=== PATIENT | female | born 1995 | race Caucasian/White ===

== ENCOUNTER 2018-08-01 10:31 | Inpatient (IN) | payer MEDICAID ==
[~2018-08-01] VITALS: Ht 157.5 cm; Wt 104.8 kg
[2018-08-01 10:31] VITALS: BP_SYST 134
--- NOTE | 2018-08-01 10:35 | NUR ---
Patient triaged and placed in waiting room. VSS and patient appears in no acute distress at this time. Accompanied by SELF, awaiting available bed, and MD notified of need for MSE.
--- NOTE | 2018-08-01 11:15 | NUR ---
Patient to ER bed 06 to gown for evaluation. Side rails up.
--- NOTE | 2018-08-01 11:16 | NUR ---
Pt presented to the ER with abdominal, epigastric and lower back pain x1 week 12/28. Pt states was seen at [facility] ER last week and Urgent Care in [place] 07/30/18. Patient ambulatory to the ER, arrived with father. Patient A7Ox4, afebrile, respirations equal bilat.
--- NOTE | 2018-08-01 11:30 | NUR ---
ER at bedside examining patient.
--- NOTE | 2018-08-01 11:30 | NUR ---
ER Dr. Monreal at bedside examining patient.
[2018-08-01] MEDS ORDERED: NACL 0.9% 1,000 ML IV ONE (11:34)
[2018-08-01 11:51] LABS: BILIRUBIN,URINE NEGATIVE (NEGATIVE); BLOOD, URINE 2+ (NEGATIVE); CLARITY/URINE CLEAR (CLEAR); COLOR,URINE YELLOW (YELLOW); GLUCOSE,URINE NEGATIVE (NEGATIVE); KETONES,URINE NEGATIVE (NEGATIVE); LEUKOCYTE ESTERASE ,URINE NEGATIVE (NEGATIVE); NITRITE, URINE NEGATIVE (NEGATIVE); PH,URINE 5.5 (5.0-8.0); PROTEIN URINE 1+ (NEGATIVE); UROBILINOGEN,URINE 0.2 (0.2-1.0)
--- NOTE | 2018-08-01 11:54 | NUR ---
CT abdomen with contrast consent signed. Radiology notified pt is ready for exam.
[2018-08-01 12:01] LABS: BACTERIA,URINE FEW /HPF (None Seen); MUCUS,URINE 1+ /LPF (None Seen); WBC,URINE 0-3 /HPF (0-3)
[2018-08-01 12:03] LABS: BENZODIAZEPINE, URINE NEGATIVE (NEG <=150); COCAINE, URINE NEGATIVE (NEG <=150); METHAMPHETAMINES SCREEN,URINE NEGATIVE (NEG <=500); PHENCYCLIDINE SCREEN,URINE NEGATIVE (NEG <=25); UR TRICYCLIC ANTIDEPRESSANTS NEGATIVE (NEG <=300); URINE AMPHETAMINE NEGATIVE (NEG <=500); URINE METHADONE NEGATIVE (NEG <=200); URINE OXYCODONE SCREEN NEGATIVE (NEG <=100); URINE PROPOXYPHENE SCREEN NEGATIVE (NEG <=300)
[2018-08-01 12:04] LABS: BARBITURATE, URINE POSITIVE (NEG <=200); CANNABINOID, URINE POSITIVE (NEG <=50); OPIATE, URINE POSITIVE (NEG <=100)
[2018-08-01 12:09] LABS: BASOPHILS % (AUTO) 0.5 % (0.0-2.0); EOSINOPHILS # (AUTO) 0.4 K/uL (0.0-0.4); EOSINOPHILS % (AUTO) 2.6 % (0.0-4.0); HEMATOCRIT 39.8 % (36-48); HEMOGLOBIN 13.2 g/dL (12.0-16.0); LYMPHOCYTES # (AUTO) 1.9 K/uL (1.0-5.5); LYMPHOCYTES % (AUTO) 12.8 % (20.5-51.5); MEAN CORPUSCULAR HEMOGLOBIN 29 pg (27-31); MEAN CORPUSCULAR HGB CONC 33 % (32-36); MEAN CORPUSCULAR VOLUME 86 fL (79.0-98.0); MONOCYTES # (AUTO) 1.4 K/uL (0.0-1.0); MONOCYTES % (AUTO) 9.3 % (1.7-9.3); NEUTROPHILS # (AUTO) 11.4 K/uL (1.8-7.7); NEUTROPHILS % (AUTO) 74.8 % (40.0-70.0); PLATELET COUNT (AUTO) 493 K/uL (130-430); RED BLOOD CELL COUNT(AUTO) 4.64 MIL/uL (4.2-6.2); RED CELL DISTRIBUTION WIDTH 12.9 % (9.0-15.0); WHITE BLOOD COUNT (AUTO) 15.2 K/uL (4.8-10.8)
[2018-08-01 12:10] LABS: BASOPHILS # (AUTO) 0.1 K/uL (0.0-0.2)
[2018-08-01] MEDS ORDERED: IOHEXOL 100 ML IV ONE (12:10)
[2018-08-01 12:12] LABS: CALCIUM 9.2 mg/dL (8.4-11.0); CREATININE 0.79 mg/dL (0.55-1.30); POTASSIUM 4.2 mmol/L (3.5-5.1)
[2018-08-01 12:16] LABS: ALBUMIN 3.3 g/dL (3.4-4.8); TOTAL BILIRUBIN 0.4 mg/dL (0.0-1.0)
[2018-08-01] MEDS ORDERED: metroNIDAZOLE 500 mg/NS 100 ML IV ONE (13:00)
[2018-08-01] MEDS ORDERED: PIPERACILLIN/TAZO 3.375 GM in NS 50 ML IV ONE (13:00)
[2018-08-01] MEDS ORDERED: PIPERACILLIN/TAZOBACTAM 3.375 GM/VIAL (ZOSYN) IV ONE (13:15)
--- NOTE | 2018-08-01 13:17 | NUR ---
Blood cultures drawn and sent to lab. Zosyn 3.375 g at 100mL/hr administered. Pt tolerated well. No adverse reactions noted.
[2018-08-01] MEDS ORDERED: MORPHINE 4 MG/ML INJ. SYRINGE IVP ONE (14:00)
--- NOTE | 2018-08-01 15:08 | NUR ---
Pt states she is full code.
[2018-08-01] MEDS ORDERED: D5/0.45 NS 1,000 ML IV ONE (15:15)
--- NOTE | 2018-08-01 15:18 | NUR ---
CONSULTATION PAGED/CALLED Reason for Consultation: [] CHOLECYSTITIS Person Who was Notified: [] MARIO/DR MOTA Consulting Physician: [] DR Sukhjinder MOTA Charge Attendant Specialty: [] GEN SURGEON Ordering Physician: [] DR Kuldip ZEE
--- NOTE | 2018-08-01 15:31 | NUR ---
Patient will be admitted to care of Dr Simon. Admitted to MedSurg unit. Will go to room 125B. Belongings list completed. Summary report printed. Report will given to Patsy RN, transported to [facility] 125B by Charli MCDONNELL.
--- NOTE | 2018-08-01 15:36 | NUR ---
ADMISSION NOTE Received patient from ER via rtra, received report from luz marina MCDONNELL. Patient admitted with diagnosis of cholycystitis. Patient oriented to hospital routine, call light, toileting and safety-patient verbalized understanding. ADMISSION NOTE Received patient from ER via gurney. Patient admitted with diagnosis of []. Patient is awake, alert, oriented X []. Patient oriented to hospital room, call light, toileting, pain management and safety-teach back done. Patient informed that [] will be [] nurse and that their room number is []. Personal belongings checked and Belongings List documented. Call light within reach.
[2018-08-01 16:05] VITALS: BP_SYST 120
--- NOTE | 2018-08-01 16:13 | NUR ---
JAJA CAMPOS PAGED FOR PAIN MEDICATION. ORDERS RECEIVED AND CARRIED OUT.
[2018-08-01] MEDS ORDERED: ONDANSETRON HCL 4 MG/2 ML VIAL IVP PRN (16:15)
[2018-08-01] MEDS ORDERED: MORPHINE 4 MG/ML INJ. SYRINGE IVP PRN (16:15)
[2018-08-01] MEDS: MORPHINE 4 MG/ML INJ. SYRINGE IVP PRN (16:37)
[2018-08-01] MEDS ORDERED: HYDROmorphone 1 MG INJ. 1 MG/ML AMPUL IVP ONE (17:00)
[2018-08-01] MEDS ORDERED: HYDROmorphone 2 MG/ML VIAL ONE (17:13)
[2018-08-01 17:20] LABS: HCG,QUAL RESULT NEGATIVE (NEGATIVE)
--- NOTE | 2018-08-01 18:01 | NUR ---
PATIENT TAKEN TO SURGERY
[2018-08-01] MEDS ORDERED: LR 1,000 ML IV.SOLN IV ONE (18:10)
[2018-08-01] MEDS ORDERED: WATER FOR IRRIGATION,STERILE 1,000 ML IRRIG.SOLN IR ONE (18:10)
[2018-08-01] MEDS ORDERED: ROCURONIUM BROMIDE 10 MG/ML (ZEMURON) IV ONE (18:10)
[2018-08-01] MEDS ORDERED: CEFAZOLIN 2 GM IVPB PREMIX 50 ML IV ONE (18:10)
[2018-08-01] MEDS ORDERED: BUPIVACAINE /DEX PF 0.75% SPINAL 2 ML AMP INJ ONE (18:10)
[2018-08-01] MEDS ORDERED: fentaNYL CITRATE/PF 100 MCG/2 ML AMP IVP ONE (18:10)
[2018-08-01] MEDS ORDERED: SEVOFLURANE 15 MIN GAS INH ONE (18:10)
[2018-08-01] MEDS ORDERED: ONDANSETRON HCL 4 MG/2 ML VIAL IVP ONE (18:10)
[2018-08-01] MEDS ORDERED: PROPOFOL 200MG/ 20ML VIAL (DIPRIVAN) IV ONE (18:10)
[2018-08-01] MEDS ORDERED: MIDAZOLAM HCL 5 MG/5 ML VIAL IVP ONE (18:10)
[2018-08-01] MEDS ORDERED: fentaNYL CITRATE 250 MCG/5 ML AMP IV ONE (18:10)
[2018-08-01] MEDS ORDERED: LORazepam 2 MG/ML VIAL IVP PRN (18:30)
[2018-08-01] MEDS ORDERED: LR 1,000 ML IV SCH (19:14)
[2018-08-01] MEDS ORDERED: METOCLOPRAMIDE HCL 10 MG/2 ML VIAL IVP PRN (19:15)
[2018-08-01] MEDS ORDERED: HYDROmorphone 1 MG INJ. 1 MG/ML AMPUL IVP PRN ×2 (19:15)
[2018-08-01] MEDS ORDERED: HYDROmorphone 2 MG/ML VIAL IVP PRN (19:15)
[2018-08-01 20:40] VITALS: BP_SYST 141
--- NOTE | 2018-08-01 20:40 | NUR ---
RECEIVED PT FROM PACU PT RECEIVED FROM DISABILITIES SERVICES OFFICER SAMSON. PT AWAKE, BUT DROWSY. VSS, NO ACUTE DISTRESS NOTED, NO C/O PAIN AT THIS TIME. LR CURRENTLY INFUSING L.AC 18G NO S/S INFILTRATION. ABD LAP SITES X 3 GAUZE DRESSING C/D/I AND RIGHT EMMA DRAIN EMPTIED 30ML BLOODY DRAINAGE. DAIN SCDS ON. FAMILY AT BEDSIDE. CALL LIGHT WITHIN REACH. TO MONITOR.
--- NOTE | 2018-08-01 21:30 | NUR ---
PAIN MGMT/I.S PT C/O DULL POST OP PAIN 08/28, VSS MEDICATED WITH MORPHINE 2MG IVP NEEDED. CALL LIGHT WITHIN REACH. FAMILY AT BEDSIDE. EDUCATED PT/FAMILY ON I.S. USE 10X WHILE AWAKE TO PREVENT COMPLICATIONS. VERB UNDERSTANDING.
[2018-08-01 22:05] VITALS: BP_SYST 133
--- NOTE | 2018-08-02 00:15 | NUR ---
Rounds Pt asleep. No s/s distress noted. LR still infusing. Pt's significant other at bedside. Call light within reach. To monitor.
[2018-08-02 00:24] VITALS: BP_SYST 133
[2018-08-02] MEDS: MORPHINE 4 MG/ML INJ. SYRINGE IVP PRN ×3 (02:04→10:07)
--- NOTE | 2018-08-02 02:04 | NUR ---
Pain mgmt/Pt voided Pt awake, c/o severe pain after coughing. Medicated with Morphine 4mg IVP. Encouraged pt to use pillow to splint abdomen when coughing. Pt verbalized understanding. Pt requested to use bedpan. Pt voided good amount of stacey urine noted. Call light within reach. Suraj SCDs in place. To monitor.
[2018-08-02 05:12] VITALS: BP_SYST 130
--- NOTE | 2018-08-02 05:22 | NUR ---
Closing notes/Pain mgmt/EMMA drain Pt awake, moaning in severe pain. VSS. O2 93% on 2L NC. Medicated with Morphine 4mg IVP as needed. LR currently running L. AC 18G no s/s infiltration. EMMA drain R. abd emptied total of 60ml red drainage. Lap sites x3 dressings C/D/I. Suraj SCDs in place. Call light remains within easy reach. Pt made comfortable. To endorse to dayshift RN.
[2018-08-02 07:13] LABS: ALBUMIN 2.3 g/dL (3.4-4.8); CALCIUM 8.3 mg/dL (8.4-11.0); CREATININE 0.69 mg/dL (0.55-1.30); POTASSIUM 3.9 mmol/L (3.5-5.1); TOTAL BILIRUBIN 2.6 mg/dL (0.0-1.0)
[2018-08-02 07:19] LABS: HEMATOCRIT 36.4 % (36-48); HEMOGLOBIN 12.3 g/dL (12.0-16.0); MEAN CORPUSCULAR HEMOGLOBIN 29 pg (27-31); MEAN CORPUSCULAR HGB CONC 34 % (32-36); MEAN CORPUSCULAR VOLUME 86 fL (79.0-98.0); PLATELET COUNT (AUTO) 474 K/uL (130-430); RED BLOOD CELL COUNT(AUTO) 4.25 MIL/uL (4.2-6.2); RED CELL DISTRIBUTION WIDTH 12.7 % (9.0-15.0); WHITE BLOOD COUNT (AUTO) 12.3 K/uL (4.8-10.8)
[2018-08-02 07:20] LABS: BASOPHILS % (AUTO) 0.2 % (0.0-2.0); EOSINOPHILS # (AUTO) 0.2 K/uL (0.0-0.4); EOSINOPHILS % (AUTO) 1.3 % (0.0-4.0); LYMPHOCYTES # (AUTO) 1.8 K/uL (1.0-5.5); LYMPHOCYTES % (AUTO) 14.4 % (20.5-51.5); MONOCYTES # (AUTO) 1.1 K/uL (0.0-1.0); MONOCYTES % (AUTO) 9.3 % (1.7-9.3); NEUTROPHILS # (AUTO) 9.2 K/uL (1.8-7.7); NEUTROPHILS % (AUTO) 74.8 % (40.0-70.0)
--- NOTE | 2018-08-02 07:20 | NUR ---
Opening Note patient resting in bed, eyes closed, breathing unlabored and symmetrical, no signs of distress, partner at bedside, educated him on use of call light for assistance, verbalized understanding, call light and bedside table left within reach, will continue to monitor patient
[2018-08-02 08:55] VITALS: BP_SYST 132
--- NOTE | 2018-08-02 09:05 | NUR ---
Incentive Spirometer teaching performed at this time, educated patient regarding use, verbalized understanding, reached 1000 mL, educated on goal of 1500 mL and frequency of use, verbalized understanding, left on table within reach, educated on pain management, verbalized understanding, stated pain is 6/10, does not want pain meds at this time, family at bedside, educated patient on use of call light for assistance, verbalized understanding, call light and bedside table left within reach, will continue to monitor patient
--- NOTE | 2018-08-02 10:13 | NUR ---
Pain Meds given at this time, educated patient regarding med, verbalized understanding, IV site remains patent, demonstrated incentive spirometer and reached 1500 mL, educated her on frequency of use as tolerated, verbalized understanding, father and partner at bedside, educated patient on use of call light for assistance, verbalized understanding, call light and bedside table left within reach, safety precautions in place, will continue to monitor
--- NOTE | 2018-08-02 11:50 | NUR ---
Patient Ambulated Around Unit at this time, steady gait, walked with IV pole, stated pain is tolerable when ambulating, assisted back to bed, educated patient on use of call light for assistance, verbalized understanding, call light and bedside table left within reach, will continue to monitor patient
[2018-08-02 12:25] VITALS: BP_SYST 131
--- NOTE | 2018-08-02 13:30 | NUR ---
Dr. Simon Rounded spoke with patient, per patient MD stated possible DC tomorrow, will follow through with MD orders
[2018-08-02] MEDS: HYDROcodone/ACETAMIN 5-325 MG TAB (NORCO/ VICODIN) PO PRN ×3 (13:43→22:36)
--- NOTE | 2018-08-02 13:47 | NUR ---
Hortencia given per pain scale protocol, educated her regarding med, tolerated well, she is sitting on bed legs dangling, father at bedside, educated patient on use of call light for assistance, verbalized understanding, call light and bedside table left within reach, will continue to monitor patient
--- NOTE | 2018-08-02 14:28 | NUR ---
Spoke with Dr. Tejinder ACOSTA ok'd to advance to full liquid diet, also informed MD that IV fluids are finishing and if he wanted to continue IV fluids, stated OK to saline lock after IV bag is complete
[2018-08-02 16:08] VITALS: BP_SYST 106
--- NOTE | 2018-08-02 16:23 | NUR ---
Dr. Marr Rounded at this time, wants to order MRI MRCP, will probably place order
--- NOTE | 2018-08-02 16:42 | NUR ---
MRI stated cannot do MRCP until Sunday Dr. Marr made aware at nurses' station. stated will assess labs tomorrow and go from there.
--- NOTE | 2018-08-02 17:15 | NUR ---
Dietitian Recommendations *Recommend advancing to full liquid diet if/when medically appropriate. LP, RD Please refer to Nutrition Assessment for details.
[2018-08-02] MEDS: D5/0.45 NS 1,000 ML IV SCH (18:34)
--- NOTE | 2018-08-02 18:43 | NUR ---
Pain Meds/Closing Note patient sitting on bed, legs dangling, mother at bedside, norco given per pain scale protocol, patient tolerated well, additional 10 mL from EMMA drain removed, total of 70 mL today. No other needs at this time. Educated patient on use of call light for assistance, verbalized understanding, call light and bedside table left within reach, will endorse to warehouse shift supervisor nurse
[2018-08-02 20:00] VITALS: BP_SYST 123
--- NOTE | 2018-08-02 20:00 | NUR ---
INITIAL NOTES: PT IS ALERT AND ORIENTED , NOTICED SHE IS WALKING IN THE ROOM WITH MINIMAL ASSIST , PT STATED HER PAIN IS BETTER AFTER MEDICATION ; VITALS ARE STABLE ; ASSESSMENT DONE ; ALL NEEDS MET , ENCOURAGED PT TO USE IS EVERY HR WHILE AWAKE FOR 10 TIMES . FAMILY AT BEDSIDE ; DRESSING TO THE ABDOMEN X3 CLEAN DRY AND INTACT , NO S/S OF ANY INFECTION TO THE RUTH DRESSING SITE NOTED ; EMMA IS DRAINING WELL SEROSANGUINEOUS DRAINAGE , NO CLOTS NOTED , DRESSING TO ITS SITE IS CLEAN AND DRY AND INTACT . IV FLUID IS INFUSING WELL TO THE LEFT AC , NO S/S OF ANY INFILTRATION OR INFECTION NOTED .ENCOURAGED PT TO CALL FOR ASSIST ; WILL CONTINUE TO MONITOR PT
--- NOTE | 2018-08-02 22:00 | NUR ---
RN NOTES: PT IS C/O MILD - MODERATE PAIN , WILL MEDICATE WHEN NORCO IS DUE . PT STILL DIDNT PASS GAS , ENCOURAGED PT TO AMBULATE MORE WITH ASSIST .
--- NOTE | 2018-08-02 22:40 | NUR ---
MEDICATION: PT C/O PAIN , MEDICATED WITH NORCO PER ORDER , EDUCATED PT REGARDING THE MEDICATION .WILL CONTINUE TO MONITOR PT .
--- NOTE | 2018-08-03 00:10 | NUR ---
RN ROUNDS: PT IS SLEEPING , NOT IN ANY ACUTE DISTRESS; WILL CONTINUE TO MONITOR PT .
[2018-08-03 01:10] VITALS: BP_SYST 124
--- NOTE | 2018-08-03 02:00 | NUR ---
RN NOTES: PT CALLED AND REQUESTED TO DRAIN THE EMMA , EMMA DRAINED 25 ML BY ADMITTING NURSE SINCE PRIMARY RN WAS WITH ANOTHER PT , NOTICED THAT PT IS WALKING ON THE HALLWAY WITH HIS FAMILY .STEADY GAIT NOTED . NO C.O ANY PAIN AT THIS TIME .WILL CONTINUE TO MONITOR
[2018-08-03] MEDS: D5/0.45 NS 1,000 ML IV SCH ×3 (03:35→18:03)
[2018-08-03] MEDS: HYDROcodone/ACETAMIN 5-325 MG TAB (NORCO/ VICODIN) PO PRN ×3 (03:36→13:55)
--- NOTE | 2018-08-03 03:48 | NUR ---
RN NOTES: PT C/O PAIN , PROVIDED NORCO PER ORDER , REMINDED PT OF NPO STATUS .WILL CALL MD IN THE MORNING TO CLARIFY ORDER .
--- NOTE | 2018-08-03 06:20 | NUR ---
RECEIVED CALL FROM LAB. TIM- CRITICAL LAB. BLOOD CULTURE POSITIVE FOR GRAM POSITIVE COCCI, INFORM PRIMARY NURSE. PRIMARY NURSE VERIFIED WITH LAB.
--- NOTE | 2018-08-03 06:25 | NUR ---
CALLED BACK : DR MOTA CALLED BACK , ORDERED CLEAR LIQUIDS
--- NOTE | 2018-08-03 06:32 | NUR ---
BLOOD CULTURE RESULT: ADMITTING NURSE CAME TO RN AND STATED LAB CALLED AND SAID PT S BLOOD CULTURE IS POSITIVE FOR GRAM POSITIVE COCCI . CALLED AND CONFIRMED WITH TIM IN LAB , PER TIM HE CANNOT ENTER IT IN THE COMPUTER SINCE ITS PRELIMINARY RESULT AND SPECIMEN IS STILL IN THE FABIANO .SENSITIVITY IS NOT READY , WILL CALL AND NOTIFY
--- NOTE | 2018-08-03 06:37 | NUR ---
PAGED PAGED Yuliana ZEE FOR CRITICAL LAB
--- NOTE | 2018-08-03 06:50 | NUR ---
CALLED BACK ; DR Kuldip ZEE CALLED BACK , NOTIFIED MD THAT PTS PRELIMINARY BLOOD CULTURE RESULT CAME AND PATIENT IS POSITIVE FOR GRAM POSITIVE COCCI IN CLUSTER , ORDERED LEVAQUIN 500 MG IV Q24 HRS , FLAGYL 500 MG IV Q8 HRS , ID CONSULT WITH DR MARK KC . ORDER ENTERED .
--- NOTE | 2018-08-03 06:59 | NUR ---
CONSULTATION PAGED/CALLED Reason for Consultation: POSITIVE BLOOD CULTURE Person Who was Notified: ARLIN Consulting Physician: DR. MARK KC Infant Childcare Provider Specialty: INTERNAL MEDICINE Ordering Physician: DR. Yuliana ZEE
[2018-08-03] MEDS ORDERED: metroNIDAZOLE 500 mg/NS 100 ML IV ONE (07:00)
[2018-08-03 07:06] LABS: ALBUMIN 2.1 g/dL (3.4-4.8); CALCIUM 8.3 mg/dL (8.4-11.0); CREATININE 0.71 mg/dL (0.55-1.30); POTASSIUM 3.7 mmol/L (3.5-5.1)
[2018-08-03 07:09] LABS: HEMATOCRIT 36.9 % (36-48); HEMOGLOBIN 12.3 g/dL (12.0-16.0); LYMPHOCYTES % (AUTO) 9.6 % (20.5-51.5); MEAN CORPUSCULAR HEMOGLOBIN 28 pg (27-31); MEAN CORPUSCULAR HGB CONC 33 % (32-36); MEAN CORPUSCULAR VOLUME 86 fL (79.0-98.0); NEUTROPHILS % (AUTO) 79.4 % (40.0-70.0); PLATELET COUNT (AUTO) 450 K/uL (130-430); RED BLOOD CELL COUNT(AUTO) 4.32 MIL/uL (4.2-6.2); RED CELL DISTRIBUTION WIDTH 12.9 % (9.0-15.0); WHITE BLOOD COUNT (AUTO) 12.5 K/uL (4.8-10.8)
[2018-08-03 07:10] LABS: BASOPHILS % (AUTO) 0.2 % (0.0-2.0); EOSINOPHILS # (AUTO) 0.1 K/uL (0.0-0.4); LYMPHOCYTES # (AUTO) 1.2 K/uL (1.0-5.5); MONOCYTES # (AUTO) 1.2 K/uL (0.0-1.0); MONOCYTES % (AUTO) 9.8 % (1.7-9.3); NEUTROPHILS # (AUTO) 9.9 K/uL (1.8-7.7)
--- NOTE | 2018-08-03 07:20 | NUR ---
CLOSING NOTES: PT IS SITTING UP AT THE BEDSIDE , NOT IN ANY ACUTE DISTRESS; EMMA DRAINED 35 ML IN TOTAL ; PT STATED SHE PASSED GAS ONCE . INFORMED PT THAT MD ORDERED CLEAR LIQUIDS . REPORT GIVEN TO RN AT BEDSIDE . INFORMED RN ABOUT THE NEW ORDERS LEVAQUIN, FLAGYL AND ID CONSULT . ALL NEEDS MET .
[2018-08-03 08:00] VITALS: BP_SYST 144
--- NOTE | 2018-08-03 08:00 | NUR ---
OPENING NOTE: RECEIVED REPORT FROM NIGHT NURSE. PATIENT IS RESTING COMFORTABLY IN BED. NO S/S OF DISTRESS OR SOB. PATIENT IS ALERT AND ORIENTED, ABLE TO EXPRESS NEEDS AND ASK FOR ASSISTANCE. BOYFRIEND AT BEDSIDE. VITAL SIGNS UPDATED IN FLOWSHEET. IVF INFUSING. PATIENT ON ROOM AIR. EMMA DRAIN IN PLACE. CALL LIGHT IN REACH, BED IN LOWEST POSITION, AND WILL CONTINUE TO MONITOR.
[2018-08-03] MEDS ORDERED: VANCOMYCIN HCL 2,000 MG in NS 500 ML IV ONE (08:30)
[2018-08-03] MEDS: LEVOFLOXACIN 500 MG/D5W 100 ML IV SCH (09:55)
--- NOTE | 2018-08-03 10:00 | NUR ---
PATIENT AMBULATING AROUND THE UNIT WITH HER MOTHER. STEADY GAIT NOTICED.
[2018-08-03 12:02] VITALS: BP_SYST 136
--- NOTE | 2018-08-03 13:00 | NUR ---
RN ROUNDS: PATIENT AMBULATING WITH HER MOTHER AROUND THE UNIT. STEADY GAIT. WILL CONTINUE TO MONITOR.
[2018-08-03] MEDS: metroNIDAZOLE 500 mg/NS 100 ML IV SCH ×2 (13:55→23:49)
[2018-08-03] MEDS ORDERED: HYDROmorphone 1 MG INJ. 1 MG/ML AMPUL IM PRN (14:30)
--- NOTE | 2018-08-03 14:30 | NUR ---
Dr. Marr making rounds
--- NOTE | 2018-08-03 15:00 | NUR ---
abdomen ultrasound being done at bedside.
[2018-08-03] MEDS: HYDROmorphone 1 MG INJ. 1 MG/ML AMPUL IVP PRN ×2 (15:22→20:52)
--- NOTE | 2018-08-03 15:25 | NUR ---
PAIN MEDICATION PATIENT MEDICATED FOR PAIN WITH NEW PRN MEDICATION ORDER. IVP DILAUDID GIVEN PER DR. MOTA'S ORDER. PATIENT EDUCATED ON MEDICATION SIDE EFFECTS AND TO CALL FOR ASSISTANCE BEFORE GETTING UP. PATIENT VERBALIZED UNDERSTANDING. FAMILY AT BEDSIDE AND ALSO EDUCATED. CALL LIGHT IN REACH, BED IN LOWEST POSITION, AND WILL CONTINUE TO MONITOR.
[2018-08-03 16:25] VITALS: BP_SYST 124
--- NOTE | 2018-08-03 17:44 | NUR ---
CORPORATE QUALITY ENGINEER CONSULT SPOKE TO MARTY RAYMOND AND MADE AWARE OF CONSULT, DR LI KITCHEN CLERK FOR DR MENSAH, REASON FOR CONSULT- HYPERBILIRUBIN.
--- NOTE | 2018-08-03 18:08 | NUR ---
CLOSING NOTE: PATIENT IS RESTING COMFORTABLY IN BED. NO S/S OF DISTRESS OR SOB. PATIENT IS ALERT AND ORIENTED, ABLE TO EXPRESS NEEDS, AND ASK FOR ASSISTANCE. PATIENT ON ROOM AIR. ALL NEEDS MET DURING SHIFT. CALL LIGHT IN REACH, BED IN LOWEST POSITION, AND WILL GIVE REPORT TO NIGHT NURSE.
--- NOTE | 2018-08-03 19:35 | NUR ---
Initial Note Received patient awake, alert and oriented with family at the bedside. No SOB noted. Denies any pain or n/v at this time. Room air with O2 saturation of 97%. IVF infusing. EMMA drain on RUQ intact with minimal drainage noted. Steri strips x3 CDI. No peripheral edema noted. SCD off per patient's request. Encouraged to use incentive spirometer. VS stable. Needs attended. Care and monitoring will be provided per protocol. Call light within reach. Bed alarm off per patient's request. Bed at lowest position at all times. Kept warm and comfortable. Patient wants to take a shower. Covered IV line and steri strips.
[2018-08-03] MEDS: VANCOMYCIN HCL 1,750 MG in NS 500 ML IV SCH (19:45)
[2018-08-03 20:00] VITALS: BP_SYST 129
--- NOTE | 2018-08-03 20:15 | NUR ---
Shower Patient had a shower and she's back in bed. IV line patent and steri strips are CDI. Started IV antibiotics. Father and significant other at the bedside. No other complaints.
--- NOTE | 2018-08-03 20:52 | NUR ---
Pain med Patient in bed resting. Medicated for abdominal pain per patient's request. IV antibiotic infusing as well. Comfort measures provided. Will continue to monitor.
--- NOTE | 2018-08-03 21:10 | NUR ---
Dr Parikh called Dr. Parikh called and made him aware of CT abd result, US Abd still pending and that patient is for MRI/MRCP on Sunday. No further orders given.
--- NOTE | 2018-08-03 23:45 | NUR ---
RN Note Patient awake and alert. No complaints at this time. Kept warm.
[2018-08-04] MEDS: HYDROmorphone 1 MG INJ. 1 MG/ML AMPUL IVP PRN ×6 (01:02→21:44)
--- NOTE | 2018-08-04 01:02 | NUR ---
Pain med Pain medication given by SATHYA Mcallister per patient's request. Will continue to monitor.
[2018-08-04 01:27] VITALS: BP_SYST 132
--- NOTE | 2018-08-04 01:30 | NUR ---
David Roque Dr. arrived and talked to the patient. Orders were made. Patient is arousable. No complaints at this time. IVF infusing.
--- NOTE | 2018-08-04 05:00 | NUR ---
Pain med Patient ambulated to the bathroom and back in bed with the assistance of his significant other in excruciating pain. Medicated for abdominal pain, comfort measures provided as well. Will continue to monitor.
[2018-08-04] MEDS: metroNIDAZOLE 500 mg/NS 100 ML IV SCH ×3 (05:06→23:01)
--- NOTE | 2018-08-04 06:21 | NUR ---
End Note Afebrile. Vs stable. Denies any SOB or n/v throughout the night. Medicated for pain 3x throughout the night. Ambulates well with steady gait and supervision. No BM yet but able to burp and pass gas. Tolerated clear liquid diet. Steristrips CDI. Encouraged to use the incentive spirometer. IVF infusing. Emptied about 2 ml of yellow drainage from EMMA drain, maintained bulb suction. Refused SCDs for now. AM labs today. Care and monitoring provided per protocol. Call light within reach. Bed alarm off per patient's request. Bed at lowest position at all times. Needs attended. Kept warm and comfortable.
[2018-08-04 06:45] LABS: WHITE BLOOD COUNT (AUTO) 10.9 K/uL (4.8-10.8)
[2018-08-04 06:46] LABS: HEMATOCRIT 35.7 % (36-48); HEMOGLOBIN 11.9 g/dL (12.0-16.0); MEAN CORPUSCULAR HEMOGLOBIN 28 pg (27-31); MEAN CORPUSCULAR VOLUME 85 fL (79.0-98.0); RED BLOOD CELL COUNT(AUTO) 4.18 MIL/uL (4.2-6.2)
[2018-08-04 06:47] LABS: MEAN CORPUSCULAR HGB CONC 33 % (32-36); PLATELET COUNT (AUTO) 453 K/uL (130-430)
[2018-08-04 06:48] LABS: LYMPHOCYTES % (AUTO) 14.6 % (20.5-51.5); NEUTROPHILS % (AUTO) 71.8 % (40.0-70.0)
[2018-08-04 06:49] LABS: BASOPHILS # (AUTO) 0.1 K/uL (0.0-0.2); BASOPHILS % (AUTO) 0.5 % (0.0-2.0); EOSINOPHILS # (AUTO) 0.2 K/uL (0.0-0.4); EOSINOPHILS % (AUTO) 1.8 % (0.0-4.0); LYMPHOCYTES # (AUTO) 1.6 K/uL (1.0-5.5); MONOCYTES # (AUTO) 1.2 K/uL (0.0-1.0); MONOCYTES % (AUTO) 11.3 % (1.7-9.3); NEUTROPHILS # (AUTO) 7.8 K/uL (1.8-7.7)
[2018-08-04 07:08] LABS: ALBUMIN 2.1 g/dL (3.4-4.8); CALCIUM 8.4 mg/dL (8.4-11.0); CREATININE 0.72 mg/dL (0.55-1.30); POTASSIUM 3.6 mmol/L (3.5-5.1); TOTAL BILIRUBIN 2.3 mg/dL (0.0-1.0)
--- NOTE | 2018-08-04 08:00 | NUR ---
OPENING NOTE: RECEIVED REPORT FROM NIGHT NURSE. PATIENT IS RESTING COMFORTABLY IN BED. NO S/S OF DISTRESS OR SOB. PATIENT IS ALERT AND ORIENTED, ABLE TO EXPRESS NEEDS, AND ASK FOR ASSISTANCE. IVF INFUSING. EMMA DRAIN ATTACHED. PATIENT ON ROOM AIR. CALL LIGHT IN REACH, BED IN LOWEST POSITION, AND WILL CONTINUE TO MONITOR.
[2018-08-04 08:15] LABS: C-REACTIVE PROTEIN QUANT 20.8 mg/dL (0-0.5)
[2018-08-04 08:18] VITALS: BP_SYST 134
[2018-08-04] MEDS: LEVOFLOXACIN 500 MG/D5W 100 ML IV SCH (08:43)
[2018-08-04] MEDS: D5/0.45 NS 1,000 ML IV SCH ×2 (09:07→20:47)
[2018-08-04 09:09] LABS: ERYTHROCYTE SEDIMENTATION RATE 88 MM/HR (0-20)
--- NOTE | 2018-08-04 09:10 | NUR ---
PAIN MEDICATION PATIENT MEDICATION FOR PAIN PER PRN ORDER. PATIENT INSTRUCTED ON MEDICATION SIDE EFFECTS AND INSTRUCTED ON USING CALL LIGHT TO CALL FOR ASSISTANCE BEFORE GETTING UP. PATIENT VERBALIZED UNDERSTANDING. CALL LIGHT IN REACH, BED IN LOWEST POSITION, AND WILL CONTINUE TO MONITOR.
[2018-08-04 09:20] VITALS: BP_SYST 134
[2018-08-04] MEDS: VANCOMYCIN HCL 1,750 MG in NS 500 ML IV SCH ×2 (10:35→20:46)
[2018-08-04 11:49] VITALS: BP_SYST 142
--- NOTE | 2018-08-04 12:00 | NUR ---
RN ROUNDS PATIENT IS RESTING COMFORTABLY IN BED. NO S/S OF DISTRESS OR SOB. PATIENT IS ALERT AND ORIENTED, ABLE TO EXPRESS NEEDS, AND ASK FOR ASSISTANCE. NO NEEDS EXPRESSED AT THIS TIME. CALL LIGHT IN REACH, BED IN LOWEST POSITION, AND WILL CONTINUE TO MONITOR.
[2018-08-04 16:26] VITALS: BP_SYST 141
--- NOTE | 2018-08-04 18:29 | NUR ---
FOOD IN FREEZER/FRIDGE FAMILY BROUGHT JELLO AND POPSICLES FOR PATIENT, LABELS PLACED ON ITEMS AND PLACED IN PATIENT FRIDGE IN PANTRY.
--- NOTE | 2018-08-04 18:30 | NUR ---
CLOSING NOTE: PATIENT IS RESTING COMFORTABLY IN BED. NO S/S OF DISTRESS OR SOB. PATIENT IS ALERT AND ORIENTED, ABLE TO EXPRESS NEEDS, AND ASK FOR ASSISTANCE. PATIENT CURRENTLY ON ROOM AIR, ENCOURAGED TO KEEP NASAL CANNULA ON. ALL NEEDS MET DURING SHIFT. CALL LIGHT IN REACH, BED IN LOWEST POSITION, AND WILL GIVE REPORT TO NIGHT NURSE.
--- NOTE | 2018-08-04 19:30 | NUR ---
CHANGE OF SHIFT; pt. in bed resting, with family at bedside. IVF infusing. S/P lap cara, 3 incision with steri strips intact with J mendez x1. reminded pt. on deep breathing and use of IS. denies any pain at this time. call light within reach.
--- NOTE | 2018-08-04 20:00 | NUR ---
NOTES: pt. ambulated in the hallway with family member. deep breathing encouraged. on room air.abdominal dressing with steri strips intact. pt. schedule for MRI of abdomen, will be NPO after midnight. pt. needs attended. family at bedside. call light within reach.
[2018-08-04 20:15] VITALS: BP_SYST 139
--- NOTE | 2018-08-04 21:00 | NUR ---
NOTES: pt. up dangling in bed and playing games with family. IV antibiotic infused.
--- NOTE | 2018-08-04 21:45 | NUR ---
NOTES: pt. c/o post op abdominal pain 12/28, medicated with IV Dilaudid as ordered. repositioned self for comfort. pt. /boyfriend at bedside will be staying all night.
--- NOTE | 2018-08-04 23:18 | NUR ---
NOTES: remains awake, resting, noted some relief from pain. reminded to be NPO at midnight.
[2018-08-05 00:10] VITALS: BP_SYST 134
--- NOTE | 2018-08-05 00:37 | NUR ---
NOTES: pt. resting when checked. condition unchanged. kept NPO for MRI of abdomen, consent signed and checklist completed.
[2018-08-05] MEDS: HYDROmorphone 1 MG INJ. 1 MG/ML AMPUL IVP PRN ×5 (01:54→21:35)
--- NOTE | 2018-08-05 01:58 | NUR ---
NOTES: pt. called c/o post op abdominal pain 02/27, pt. moaning, medicated with IV Dilaudid as ordered. IVF patent.
--- NOTE | 2018-08-05 03:09 | NUR ---
NOTES: pt. noted relief, sleeping. continue to monitor.
[2018-08-05] MEDS: metroNIDAZOLE 500 mg/NS 100 ML IV SCH ×3 (05:41→21:35)
--- NOTE | 2018-08-05 05:45 | NUR ---
NOTES: pt. sleeping when checked. IV kept @ 100 cc./hr. incision sites with steri strips intact with coretta mendez x1.
[2018-08-05] MEDS: D5/0.45 NS 1,000 ML IV SCH ×2 (06:30→14:30)
--- NOTE | 2018-08-05 06:40 | NUR ---
CLOSING NOTES; pt. still asleep when checked. IVF @ 100 cc./hr with D5 1/2 NS. kept NPO for MRI (MRCP) of abdomen. for further care and assistance. will endorse to day shift. boyfriend at bedside. call light within reach.
[2018-08-05 06:43] LABS: ALBUMIN 2.1 g/dL (3.4-4.8); BILIRUBIN,DIRECT 2.6 mg/dL (0.0-0.3); CALCIUM 8.4 mg/dL (8.4-11.0); CREATININE 0.76 mg/dL (0.55-1.30); POTASSIUM 3.2 mmol/L (3.5-5.1); TOTAL BILIRUBIN 2.8 mg/dL (0.0-1.0)
[2018-08-05 07:12] LABS: HEMATOCRIT 35.2 % (36-48); HEMOGLOBIN 11.8 g/dL (12.0-16.0); MEAN CORPUSCULAR HEMOGLOBIN 29 pg (27-31); MEAN CORPUSCULAR HGB CONC 33 % (32-36); MEAN CORPUSCULAR VOLUME 86 fL (79.0-98.0); RED CELL DISTRIBUTION WIDTH 13.3 % (9.0-15.0); WHITE BLOOD COUNT (AUTO) 9.2 K/uL (4.8-10.8)
[2018-08-05 07:14] LABS: PLATELET COUNT (AUTO) 458 K/uL (130-430)
[2018-08-05 07:19] LABS: LYMPHOCYTES % (AUTO) 18.9 % (20.5-51.5); NEUTROPHILS % (AUTO) 68.4 % (40.0-70.0)
[2018-08-05 07:20] LABS: BASOPHILS % (AUTO) 0.3 % (0.0-2.0); EOSINOPHILS # (AUTO) 0.2 K/uL (0.0-0.4); EOSINOPHILS % (AUTO) 2.1 % (0.0-4.0); LYMPHOCYTES # (AUTO) 1.7 K/uL (1.0-5.5); MONOCYTES # (AUTO) 0.9 K/uL (0.0-1.0); MONOCYTES % (AUTO) 10.3 % (1.7-9.3); NEUTROPHILS # (AUTO) 6.3 K/uL (1.8-7.7)
--- NOTE | 2018-08-05 07:42 | NUR ---
OPENING NOTE Patient resting in the bed. No acute distress. AAO X 4. C/O abdomen pain, will give pain med as ordered. Skin warm and dry to touch. IV intact to LAC, no redness, no swelling, no drainage. On D5 1/2 NS at 100ml/hr, infusing well. Discussed the safety issue, use call light when needs help, and plan of care, verbally understanding. Boy friend at bedside. Safety measure maintained. Bed locked in low position, side rails up. Refused bed alarm, risk and benefit explained. Call light within reached. Will continue to monitor.
[2018-08-05 07:44] LABS: C-REACTIVE PROTEIN QUANT 14.1 mg/dL (0-0.5)
[2018-08-05 07:45] VITALS: BP_SYST 123
[2018-08-05] MEDS: LEVOFLOXACIN 500 MG/D5W 100 ML IV SCH (07:47)
[2018-08-05] MEDS: ONDANSETRON HCL 4 MG/2 ML VIAL IVP PRN ×3 (07:56→17:27)
[2018-08-05] MEDS ORDERED: POTASSIUM CHLORIDE 20 MEQ TAB.PRT.SR PO ONE (09:00)
[2018-08-05] MEDS: VANCOMYCIN HCL 1,750 MG in NS 500 ML IV SCH ×2 (09:37→21:36)
--- NOTE | 2018-08-05 09:55 | NUR ---
CALLED JAJA CAMPOS BUT THE PHONE KEPT BUSY. WILL CALL LATER.
[2018-08-05 10:23] LABS: ERYTHROCYTE SEDIMENTATION RATE 85 MM/HR (0-20)
--- NOTE | 2018-08-05 10:41 | NUR ---
PAGED DR ZEE FOR ORDERS. SPOKE WITH JANY
--- NOTE | 2018-08-05 10:52 | NUR ---
RECEIVED THE CALL FROM RADIOLOGY Per radiology will case picker patient around 12pm.
--- NOTE | 2018-08-05 10:54 | NUR ---
JAJA CAMPOS CALLED BACK Received the call back from Dr. Simon, informed to Alfred Patel patient on NPO status and the order of potassium chloride PO, asked if want to change IV and per Dr. Marr that is okay for PO medication with sip of water but better to give after MRI. Dr. Lebron stated "that is fine, just give after MRI".
--- NOTE | 2018-08-05 11:52 | NUR ---
TOYA HUDDLESTON Received the call from Dr. Marr, informed MRI no done yet. Asked Dr. Marr, patient K=3.2 this morning, Dr. Simon ordered PO potassium chloride if patient okay to take medication with water. Per Dr. Marr, patient okay to take medication with sip of water but better to take medication after MRI. Addendum: 08/05/18 at 1156 by Milly Staples RN LATER ENTRY FOR 1051, DUE TO PATIENT CARE.
--- NOTE | 2018-08-05 12:05 | NUR ---
SLEEPING Patient sleeping at this time. No acute distress. IV intact, IVF infusing well. Safety measure maintained. Call light within reached. Family at bedside. Continue to monitor.
[2018-08-05 12:14] VITALS: BP_SYST 121
--- NOTE | 2018-08-05 13:00 | NUR ---
DILAUDID AND ZOFRAN GIVEN Patient c/o abdomen pain 7/10, Dilaudid 1mg IVP and Zofran 4mg IVP given as ordered. No acute distress. Family at bedside. Safety measure maintained. Call light within reached. Continue to monitor.
--- NOTE | 2018-08-05 13:07 | NUR ---
OFF UNIT FOR MRI/MRCP VIA WHEELCHAIR IN STABLE CONDITION.
--- NOTE | 2018-08-05 14:37 | NUR ---
BACK TO UNIT FROM MRI/MRCP VIA WHEELCHAIR IN STABLE CONDITION.
[2018-08-05 16:50] VITALS: BP_SYST 123
--- NOTE | 2018-08-05 17:44 | NUR ---
TOYA HUDDLESTON VISITED WITH DIET ORDER.
[2018-08-05] MEDS ORDERED: LR 1,000 ML IV.SOLN IV ONE (18:10)
[2018-08-05] MEDS ORDERED: CEFAZOLIN 2 GM IVPB PREMIX 50 ML IV ONE (18:10)
[2018-08-05] MEDS ORDERED: ONDANSETRON HCL 4 MG/2 ML VIAL IVP ONE (18:10)
[2018-08-05] MEDS ORDERED: SEVOFLURANE 15 MIN GAS INH ONE (18:10)
[2018-08-05] MEDS ORDERED: ROCURONIUM BROMIDE 10 MG/ML (ZEMURON) IV ONE (18:10)
[2018-08-05] MEDS ORDERED: fentaNYL CITRATE/PF 100 MCG/2 ML AMP IVP ONE (18:10)
[2018-08-05] MEDS ORDERED: MIDAZOLAM HCL 5 MG/5 ML VIAL IVP ONE (18:10)
[2018-08-05] MEDS ORDERED: fentaNYL CITRATE 250 MCG/5 ML AMP IV ONE (18:10)
[2018-08-05] MEDS ORDERED: WATER FOR IRRIGATION,STERILE 1,000 ML IRRIG.SOLN IR ONE ×2 (18:10)
[2018-08-05] MEDS ORDERED: BUPIVACAINE /EPINEPHRINE/PF 0.5% 30 ML VIAL INJ ONE (18:10)
--- NOTE | 2018-08-05 18:42 | NUR ---
CLOSING NOTE Patient resting in the bed. No acute distress. Pain med given as ordered. Skin warm and dry to touch. IV intact to LAC, no redness, no swelling, no drainage. On D5 1/2 NS at 100ml/hr, infusing well. Abd 3 lap sites intact with steri strip[. EMMA intact to right abdomen with 25ml serosanguineous drainage. All needs met. Safety measure maintained. Bed locked in low position, side rails up. Refused bed alarm, risk and benefit explained. Call light within reached. Will endorse to night nurse.
--- NOTE | 2018-08-05 19:20 | NUR ---
Opening notes Received report. Patient sitting up in bed, watching TV. No signs of distress noted. Breathing is even and unlabored. Patient complains of 3/4 pain at this time. IV is patent and intact. EMMA drain is patent and intact. No needs at this time. Call light with the patient. Safety precautions in place.
--- NOTE | 2018-08-05 19:50 | NUR ---
PAGED PAGED DOCTOR MOTA FOR MRCP REPORT
--- NOTE | 2018-08-05 19:59 | NUR ---
Spoke to Dr. Marr regarding MRCP results. No new orders at this time.
[2018-08-05 20:00] VITALS: BP_SYST 125
--- NOTE | 2018-08-05 21:15 | NUR ---
PAGED PAGED DOCTOR SVETLANA SO THE FAMILY CAN SPEAK TO HIM REGARDING THE TEST RESULTS.
--- NOTE | 2018-08-05 21:35 | NUR ---
Medications Scheduled and prn pain medications given. Patient complain of 7/10 pain to right abdomen. Educated the action and side effects of medication. Patient verbalized understanding and tolerated well. No signs of allergic reaction noted. Provided patient with patient's jello and ice water. No other needs at this time. Call light with the patient. Safety precautions in place.
--- NOTE | 2018-08-05 22:07 | NUR ---
Dr. Marr at bedside Updated patient and family of MRCP results. Patient will have HIDA scan tomorrow morning. NPO after midnight. Patient and family verbalized understanding. Addendum: 08/05/18 at 2227 by Olga Dsouza RN Consent signed and placed in chart.
--- NOTE | 2018-08-06 | NUR ---
Sleeping Patient sleeping at this time. No signs of distress noted. Breathing is even and unlabored. IV is patent and intact. No needs at this time. Call light with the patient. Safety precautions in place. at bedside.
[2018-08-06 00:12] VITALS: BP_SYST 115
[2018-08-06] MEDS: D5/0.45 NS 1,000 ML IV SCH ×3 (01:40→21:12)
[2018-08-06] MEDS: HYDROmorphone 1 MG INJ. 1 MG/ML AMPUL IVP PRN ×4 (01:41→21:13)
--- NOTE | 2018-08-06 01:49 | NUR ---
Pain Patient complain of 7/10 to right abdomen. PRN pain medication given, educated the action and side effects of medication. Patient verbalized understanding and tolerated well no signs of allergic reaction noted. New bag of IV fluids hung at this time. No other needs at this time. Call light with the patient. Safety precautions in place.
[2018-08-06] MEDS: metroNIDAZOLE 500 mg/NS 100 ML IV SCH ×3 (05:37→21:12)
--- NOTE | 2018-08-06 05:45 | NUR ---
IV ABX hung at this time. No signs of allergic reaction noted. Patient resting comfortably in bed. No signs of distress noted, no complaints of pain. Breathing is even and unlabored. Call light with the patient. Safety precautions in place.
[2018-08-06 06:18] LABS: HEMATOCRIT 35.2 % (36-48); HEMOGLOBIN 11.5 g/dL (12.0-16.0); MEAN CORPUSCULAR HEMOGLOBIN 28 pg (27-31); MEAN CORPUSCULAR VOLUME 86 fL (79.0-98.0); RED BLOOD CELL COUNT(AUTO) 4.07 MIL/uL (4.2-6.2); WHITE BLOOD COUNT (AUTO) 8.5 K/uL (4.8-10.8)
[2018-08-06 06:19] LABS: BASOPHILS % (AUTO) 0.4 % (0.0-2.0); EOSINOPHILS % (AUTO) 2.8 % (0.0-4.0); LYMPHOCYTES # (AUTO) 1.8 K/uL (1.0-5.5); LYMPHOCYTES % (AUTO) 20.7 % (20.5-51.5); MEAN CORPUSCULAR HGB CONC 33 % (32-36); MONOCYTES % (AUTO) 10.6 % (1.7-9.3); NEUTROPHILS # (AUTO) 5.6 K/uL (1.8-7.7); NEUTROPHILS % (AUTO) 65.5 % (40.0-70.0); PLATELET COUNT (AUTO) 451 K/uL (130-430); RED CELL DISTRIBUTION WIDTH 13.6 % (9.0-15.0)
[2018-08-06 06:20] LABS: EOSINOPHILS # (AUTO) 0.2 K/uL (0.0-0.4); MONOCYTES # (AUTO) 0.9 K/uL (0.0-1.0)
[2018-08-06 06:33] LABS: C-REACTIVE PROTEIN QUANT 7.8 mg/dL (0-0.5); CALCIUM 8.4 mg/dL (8.4-11.0); CREATININE 0.84 mg/dL (0.55-1.30); POTASSIUM 3.6 mmol/L (3.5-5.1); TOTAL BILIRUBIN 3.5 mg/dL (0.0-1.0)
--- NOTE | 2018-08-06 06:52 | NUR ---
Closing notes Patient asleep in bed. No signs of distress noted. Breathing is even and unlabored. No complaints of pain at this time. IV is patent and intact infusing fluids. EMMA drain is patent intact. 5 ml of serous drainage noted throughout shift. All needs met throughout the shift. NPO status maintained. Call light with the patient. Safety precautions in place. Will endorse care to day shift RN. Addendum: 08/06/18 at 0657 by Olga Dsouza RN Nuclear medicine informed the nurse she will berry picker patient at 0900 and Patient does not have to be NPO and is able to receive pain medication. Will endorse to day shift RN.
[2018-08-06 08:01] LABS: ERYTHROCYTE SEDIMENTATION RATE 83 MM/HR (0-20)
[2018-08-06 08:05] VITALS: BP_SYST 128
[2018-08-06] MEDS: LEVOFLOXACIN 500 MG/D5W 100 ML IV SCH (08:05)
--- NOTE | 2018-08-06 08:05 | NUR ---
OPENING NOTES patient received resting in bed A&O x4, patient denies any acute distress at this time, pain level is an 8 out of 10, breathing is even and unlabored on room air, assessment completed, educated patient on plan of care and call light system, IVF infusing as ordered, will continue to monitor, safety precautions in place, call light within reach.
--- NOTE | 2018-08-06 08:50 | NUR ---
MD rounds Dr. Broderick assessed patient in room, informed patient that patient should remain NPO until results of HIDA scan.
--- NOTE | 2018-08-06 09:15 | NUR ---
Patient off the floor for HIDA scan at this time.
--- NOTE | 2018-08-06 11:30 | NUR ---
patient back on floor assisted patient back into bed, patient denies any acute distress or pain, IVF Infusing as ordered, breathing is even and unlabored, will continue to monitor, safety precautions in place, call light within reach, family at bedside.
[2018-08-06] MEDS: VANCOMYCIN HCL 1,750 MG in NS 500 ML IV SCH ×2 (11:41→21:13)
[2018-08-06 12:09] VITALS: BP_SYST 113
--- NOTE | 2018-08-06 12:45 | NUR ---
NOTES patient is resting in bed, patient denies any acute distress, pain is controlled at this time, breathing even and unlabored IVF infusing as ordered, will continue to monitor, safety precautions in place, call light within reach.
--- NOTE | 2018-08-06 14:55 | NUR ---
NOTES per Dr. Broderick patient is able to eat because the ERCP will be tomorrow, patient tolerating full liquid diet well, no nausea or vomiting, IVF infusing as ordered, will continue to monitor, no acute distress or pain noted, breathing even and unlabored, safety precautions in place, call light within reach.
--- NOTE | 2018-08-06 16:44 | NUR ---
NOTES patient is ambulating around the floor at this time, no acute distress or pain is noted, IVF infusing well, will continue to monitor.
[2018-08-06 17:15] VITALS: BP_SYST 116
[2018-08-06] MEDS: OXYCODONE/ACETAMINOPHEN 5-325 TABLET PO PRN (17:40)
--- NOTE | 2018-08-06 18:50 | NUR ---
CLOSING NOTE PATIENT IS RESTING IN CHAIR A&O X4, NO ACUTE DISTRESS OR PAIN NOTED, IVF INFUSING WELL, BREATHING EVEN AND UNLABORED ON ROOM AIR, ALL NEEDS WERE MET THROUGHOUT SHIFT, WILL ENDORSE REPORT TO ONCOMING NURSE, SAFETY PRECAUTIONS IN PLACE, CALL LIGHT WITHIN REACH.
--- NOTE | 2018-08-06 19:10 | NUR ---
Opening notes Received report. Patient resting in chair, talking to father. No signs of distress noted. Breathing is even and unlabored. Patient states her pain is slowly climbing up, will medicate shortly. IV is patent and intact infusing fluids. call light with the patient. Safety precautions in place.
[2018-08-06 20:00] VITALS: BP_SYST 129
--- NOTE | 2018-08-06 21:15 | NUR ---
Medications/pain Scheduled medications given. Patient complain of 7/10 pain to abdomen. Patient states percocet did not relieve her pain. Educated the patient the need to ween off Dilaudid. Patient states pain is severe and she will try percocet after her procedure tomorrow. Educated the patient the action and side effects of medications. Patient verbalized understanding. No other needs. Call light with the patient. Safety precautions in place.
[2018-08-07 00:10] VITALS: BP_SYST 119
--- NOTE | 2018-08-07 00:23 | NUR ---
Resting Patient resting comfortably in bed watching TV and talking to Mother. No signs of distress noted. Breathing is even and unlabored. IV is patent and intact. No needs at this time. Call light with the patient. Safety precautions in place.
--- NOTE | 2018-08-07 01:55 | NUR ---
Sleeping Patient sleeping in bed. No signs of distress noted. Breathing is even and unlabored. IV is patent and intact infusing fluids. Call light with the patient. Safety precautions in place.
[2018-08-07] MEDS: HYDROmorphone 1 MG INJ. 1 MG/ML AMPUL IVP PRN ×3 (03:12→23:01)
--- NOTE | 2018-08-07 03:19 | NUR ---
Pain Patient crying and complaining of 10/10 pain to abdomen. PRN pain medication given. No signs of allergic reaction noted. Provided patient with facial tissues. No other needs at this time. Call light with the patient. Safety precautions in place. Mother at bedside comforting patient.
[2018-08-07 06:11] LABS: ALBUMIN 2.2 g/dL (3.4-4.8); CALCIUM 8.4 mg/dL (8.4-11.0); CREATININE 0.79 mg/dL (0.55-1.30); POTASSIUM 3.1 mmol/L (3.5-5.1); TOTAL BILIRUBIN 3.9 mg/dL (0.0-1.0)
[2018-08-07] MEDS: D5/0.45 NS 1,000 ML IV SCH ×2 (06:30→16:30)
[2018-08-07 07:20] LABS: WHITE BLOOD COUNT (AUTO) 9.1 K/uL (4.8-10.8)
[2018-08-07 07:21] LABS: HEMOGLOBIN 11.6 g/dL (12.0-16.0); MEAN CORPUSCULAR HEMOGLOBIN 29 pg (27-31); MEAN CORPUSCULAR HGB CONC 33 % (32-36); MEAN CORPUSCULAR VOLUME 86 fL (79.0-98.0); PLATELET COUNT (AUTO) 457 K/uL (130-430); RED BLOOD CELL COUNT(AUTO) 4.06 MIL/uL (4.2-6.2); RED CELL DISTRIBUTION WIDTH 14.3 % (9.0-15.0)
[2018-08-07] MEDS: LEVOFLOXACIN 500 MG/D5W 100 ML IV SCH (08:00)
--- NOTE | 2018-08-07 08:05 | NUR ---
OPENING NOTE patient received resting in bed A&O x4, IVF infusing well, patient denies any acute distress, pain is 9/10, will medicate for pain, breathing is even and unlabored on room air, educated patient on plan of care and call light system, will continue to monitor, safety precautions in place, call light within reach.
[2018-08-07 08:38] LABS: BASOPHILS # (AUTO) 0.1 K/uL (0.0-0.2); BASOPHILS % (AUTO) 0.6 % (0.0-2.0); EOSINOPHILS # (AUTO) 0.3 K/uL (0.0-0.4); EOSINOPHILS % (AUTO) 3.1 % (0.0-4.0); LYMPHOCYTES # (AUTO) 1.7 K/uL (1.0-5.5); LYMPHOCYTES % (AUTO) 18.8 % (20.5-51.5); MONOCYTES % (AUTO) 11.4 % (1.7-9.3); NEUTROPHILS % (AUTO) 66.1 % (40.0-70.0)
[2018-08-07 09:03] LABS: ERYTHROCYTE SEDIMENTATION RATE 73 MM/HR (0-20)
--- NOTE | 2018-08-07 10:08 | NUR ---
NOTES patient is resting in bed A&O x4, pain is controlled at this time, breathing even and unlabored on room air, no acute distress noted, will continue to monitor, family at bedside, safety precautions in place, call light within reach.
[2018-08-07] MEDS: NACL 0.9% 1,000 ML IV SCH ×2 (10:30→22:52)
[2018-08-07] MEDS ORDERED: KCL 20 mEq in 100 mL (PREMIX) 100 ML IV ONE (10:30)
[2018-08-07 12:02] VITALS: BP_SYST 123
[2018-08-07 12:09] LABS: PROTHROMBIN TIME 10.4 SECS (9.5-12.5)
[2018-08-07] MEDS ORDERED: IOHEXOL 50 ML IV ONE (12:56)
--- NOTE | 2018-08-07 13:07 | NUR ---
patient off the floor for procedure.
[2018-08-07] MEDS ORDERED: INDOMETHACIN 50 MG SUPP.RECT RC ONE (13:30)
--- NOTE | 2018-08-07 13:36 | NUR ---
Nutrition F/U Admitting Diagnosis Cholecystitis Reviewed Pertinent Medical/Surgical Hx Medical Record Patient Family Members Medical History Comment: PMH per MD note: NONE Updated per MD note 08/02/18: acute cholecystitis, systemic inflammatory response syndrome, possible UTI, polysubstance abuse 08/07/18ID MD note: leukocytosis may have sepsis; acute cholecystitis, s/p laparoscopic cholecystectomy, obesity, r/o sleep apnea, elevated liver enzymes and bilirubin, hepatocellular disease Subjective Information Per MD orders, plans for ERCP. Pt had MRCP and HIDA scan recently -- MRCP revealed somewhat limited exam due to patient motion, nonvisualization of the gallbladder consistent with patient's surgical history; findings consistent with a loculated fluid collection within the stepan hepatis region; findings may be associated with surgical sequelae; a bile leak cannot be excluded. HIDA revealed no significant clearance/excretion from the liver; findings may be associated with hepatocellular dysfunction reflective in the patient's abnormal bilirubin levels. Pt reported no appetite. Bedscale wt taken: 249 lb. Current Diet Order/Nutrition Support NPO x0 days Patient/Significant Other Able To Verbalize Education Provided Indicated Pertinent Medications D5%/NaCl IV, zofran Pertinent Labs AST 171 H, ALP 251 H, WBC 9.1 WNL (improved), BUN 4 L, Ca 8.4 L, Na 116 L Height (Feet) 5 feet Height (Inches) 2.00 inches Weight (Pounds) 231 pounds (08/02/18) Weight (Calculated Kilograms) 104.749551 kilograms Patient Weight 104.78 kg Body Mass Index 42.25 kg/m2 Usual Weight 232 lbs %UBW 100 %IBW 210 [place]/Adjusted Body Weight IBW 110 lbs, 50 kg ABW 140 lbs, 64 kg Recent Weight Change No Weight Status Morbidly Obese Gastrointestinal Symptoms None Last BM Jul 30, 2018 Food Allergies No Usual Diet At Home Regular, fast food Skin Integrity Comment: Kayden Scale: 20; Anterior Abdomen Incision Current % PO Good (75-100%) Estimated Energy Expenditure (kcals/day) 9500-8985 kcal/day (20-25 kcal/kg ABW for maintenance) Estimated Protein Required (g/day) 51-77 g/day (0.8-1.2 g/kg ABW for maintenance/wound healing) Estimated Fluid Required (l/day) 2.6 L/day (25 ml/kg CBW for maintenance) Problem/Etiology/Signs/Symptoms Malnutrition R/T morbid obesity AEB 231 lbs CBW, BMI 42, and 210% IBW. *ongoing Expected Outcomes/Goals -Monitor pt appetite and PO intake w/ goal of pt meeting at least 50% estimated nutritional needs, labs trending WNL, skin integrity/wt maintenance. Dietitian Recommendations * Consider advance diet if/when medically appropriate Follow Up Mod Risk: F/U in 3-5 days Addendum: 08/07/18 at [address] CORRECTION: Follow Up High Risk: F/U 2-3 days
--- NOTE | 2018-08-07 13:48 | NUR ---
Dietitian Recommendations * Consider advance diet if/when medically appropriate LP, RD Please refer to Nutrition F/U for details.
[2018-08-07] MEDS ORDERED: fentaNYL CITRATE/PF 100 MCG/2 ML AMP IVP PRN ×2 (14:00)
[2018-08-07] MEDS ORDERED: ONDANSETRON HCL 4 MG/2 ML VIAL IVP PRN (14:00)
[2018-08-07] MEDS ORDERED: KETOROLAC TROMETHAMINE 30 MG VIAL IVP PRN (14:00)
--- NOTE | 2018-08-07 14:50 | NUR ---
Patient back from OR vital signs stable, oriented patient back to room, IVF infusing well, will continue to monitor, safety precautions in place, call light within reach, family at bedside.
--- NOTE | 2018-08-07 16:57 | NUR ---
ASSISTED PATIENT TO BATHROOM PATIENT AMBULATED WITH STEADY GAIT, NO NAUSEA OR VOMITING, NO ACUTE DISTRESS, PAIN IS CONTROLLED AT THIS TIME, WILL CONTINUE TO MONITOR, SAFETY PRECAUTIONS IN PLACE, CALL LIGHT WITHIN REACH.
--- NOTE | 2018-08-07 18:36 | NUR ---
CLOSING NOTE PATIENT IS RESTING IN BED, NO ACUTE DISTRESS OR PAIN NOTED, IVF INFUSING ORDERED, PAIN IS CONTROLLED AT THIS TIME, BREATHING IS EVEN AND UNLABORED ON ROOM AIR, FAMILY IS AT BEDSIDE, ALL NEEDS WERE MET THROUGHOUT SHIFT, WILL ENDORSE REPORT TO ONCOMING NURSE, SAFETY PRECAUTIONS IN PLACE, CALL LIGHT WITHIN REACH.
[2018-08-07 19:10] VITALS: BP_SYST 126
--- NOTE | 2018-08-07 19:10 | NUR ---
OPENING NOTE RECEIVED ENDORSEMENT REPORT FROM DAY NURSE ZORAN AT BEDSIDE. PT RESTING IN BED COMFORTABLY. PT IS AOX4. FAMILY AT BEDSIDE. NO SOB NOTED. NO DISTRESS NOTED. NO S/S OF PAIN NOTED. PT DENIES PAIN AT THIS TIME. IV ON RIGHT HAND 20G. IV CLEAN DRY AND INTACT. PT ORIENTED TO HOSPITAL ROOM. PT INSTRUCTED HOW TO USE CALL LIGHT AND ROOM PHONE. PT VERBALIZED UNDERSTANDING. SAFETY MEASURES IN PLACE. CALL LIGHT/ROOM PHONE WITHIN REACH, BED WHEELS LOCKED, BED IN LOWEST POSITION, BED RAILS UP X 2, BED ALARM ON. NO OTHER NEEDS AT THIS TIME. WILL CONTINUE TO MONITOR PT AND CONTINUE POC.
--- NOTE | 2018-08-07 20:15 | NUR ---
RN ROUNDS PT RESTING IN BED COMFORTABLY. NO SOB NOTED. NO DISTRESS NOTED. NO S/S OF PAIN NOTED. PT DENIES PAIN AT THIS TIME. VITAL SIGNS WNL. IVF INFUSING AT ORDERED RATE. NO NEEDS AT THIS TIME. SAFETY MEASURES IN PLACE. WILL CONTINUE TO MONITOR PT AND CONTINUE POC.
--- NOTE | 2018-08-07 22:30 | NUR ---
RN ROUNDS PT RESTING IN BED COMFORTABLY. NO SOB NOTED. NO DISTRESS NOTED. NO S/S OF PAIN NOTED. PT DENIES PAIN. NO NEEDS AT THIS TIME. SAFETY MEASURES IN PLACE. WILL CONTINUE TO MONITOR PT AND CONTINUE POC.
--- NOTE | 2018-08-07 23:10 | NUR ---
RN ROUNDS PT RESTING IN BED COMFORTABLY. NO SOB NOTED. NO DISTRESS NOTED. PT REPORTS 8/10 ABD PAIN. PRN DILAUDID 1MG ADMINISTERED ORDERED FOR PAIN. PT TOLERATED WELL. NO OTHER NEEDS AT THIS TIME. SAFETY MEASURES IN PLACE. WILL CONTINUE TO MONITOR PT AND CONTINUE POC.
[2018-08-08] VITALS (8 sets, daily range): BP systolic 117–129
--- NOTE | 2018-08-08 02:40 | NUR ---
RN ROUNDS PT RESTING IN BED COMFORTABLY. NO SOB NOTED. NO DISTRESS NOTED. NO S/S OF PAIN NOTED. PT DENIES PAIN AT THIS TIME. IVF INFUSING AT ORDERED RATE. NO NEEDS AT THIS TIME. SAFETY MEASURES IN PLACE. WILL CONTINUE TO MONITOR PT AND CONTINUE POC.
--- NOTE | 2018-08-08 04:37 | NUR ---
RN ROUNDS PT RESTING IN BED COMFORTABLY WITHE EYES CLOSED. NO SOB NOTED. NO DISTRESS NOTED. NO S/S OF PAIN NOTED. NO NEEDS AT THIS TIME. SAFETY MEASURES IN PLACE. CWILL CONTINUE TO MONITOR PT AND CONTINUE POC.
--- NOTE | 2018-08-08 06:05 | NUR ---
RN ROUNDS PT RESTING IN BED COMFORTABLY WITH EYES CLOSED. NO SOB NOTED. NO DISTRESS NOTED. NO S/S OF PAIN NOTED. NO NEEDS AT THIS TIME. SAFETY MEASURES IN PLACE. WILL CONTINUE TO MONITOR PT AND CONTINUE POC
--- NOTE | 2018-08-08 06:40 | NUR ---
CLOSING NOTE PT RESTING IN BED COMFORTABLY. PT IS AOX4. NO SOB NOTED. NO DISTRESS NOTED. NO S/S OF PAIN NOTED. PT DENIES PAIN AT THIS TIME. ALL NEEDS MET THROUGHOUT SHIFT. ALL SCHEDULED MEDICATIONS ADMINISTERED ORDERED. NO FURTHER NEEDS AT THIS TIME. SAFETY MEASURES IN PLACE. WILL ENDORSE PT CARE TO DAY NURSE AT BEDSIDE.
[2018-08-08] MEDS: HYDROmorphone 1 MG INJ. 1 MG/ML AMPUL IVP PRN (07:06)
--- NOTE | 2018-08-08 08:00 | NUR ---
Opening Note Report received from Amalia HOLLINS shift nurse. Abdominal dressings are dry and intact. Right EMMA draining is draining yellow fluid. IV is on the right hand 20 running NS@80. Call light is within reach and bed is in low position. Will continue to monitor.
[2018-08-08 08:06] LABS: ALBUMIN 2.7 g/dL (3.4-4.8); C-REACTIVE PROTEIN QUANT 4.2 mg/dL (0-0.5); CALCIUM 9.1 mg/dL (8.4-11.0); CREATININE 0.81 mg/dL (0.55-1.30); POTASSIUM 4.1 mmol/L (3.5-5.1); TOTAL BILIRUBIN 2.2 mg/dL (0.0-1.0)
[2018-08-08] MEDS: LEVOFLOXACIN 500 MG/D5W 100 ML IV SCH (08:31)
[2018-08-08 09:43] LABS: RED BLOOD CELL COUNT(AUTO) 4.61 MIL/uL (4.2-6.2); WHITE BLOOD COUNT (AUTO) 17.1 K/uL (4.8-10.8)
[2018-08-08 09:44] LABS: HEMATOCRIT 39.6 % (36-48); HEMOGLOBIN 12.1 g/dL (12.0-16.0); MEAN CORPUSCULAR HEMOGLOBIN 29 pg (27-31); MEAN CORPUSCULAR HGB CONC 33 % (32-36); MEAN CORPUSCULAR VOLUME 86 fL (79.0-98.0); PLATELET COUNT (AUTO) 552 K/uL (130-430)
[2018-08-08 09:54] LABS: BAND % (MANUAL) 0 % (0-6); BASOPHILS % (MANUAL) 0 % (0-2); EOSINOPHILS % (MANUAL) 2 % (0-7); LYMPHOCYTES % (MANUAL) 16 % (20-46); MONOCYTES % (MANUAL) 6 % (0-11); MYELOCYTES % 2 % (0-0)
[2018-08-08 10:07] LABS: ERYTHROCYTE SEDIMENTATION RATE 69 MM/HR (0-20)
--- NOTE | 2018-08-08 10:10 | NUR ---
MD Rounds Dr. Simon examined the patient at the bedside. NO signs of distress or c/o abd pain a the moment.
--- NOTE | 2018-08-08 12:15 | NUR ---
Rounds patient is resting in bed. call light is within reach.
--- NOTE | 2018-08-08 14:20 | NUR ---
Rounds Patient is resting in bed. Call light is within reach.
[2018-08-08] MEDS: OXYCODONE/ACETAMINOPHEN 5-325 TABLET PO PRN ×2 (15:10→20:55)
[2018-08-08] MEDS ORDERED: OXYC-128 PO (15:42)
[2018-08-08] MEDS: NACL 0.9% 1,000 ML IV SCH (16:22)
--- NOTE | 2018-08-08 16:22 | NUR ---
Closing Note Report given to Margy MCDONNELL. Patient is resting in bed. Dr. Marr removed EMMA drain and sated that the patient may be dc'd from his standpoint. No signs of distress during the shift. Call light is within reach and bed is in low position.
--- NOTE | 2018-08-08 16:30 | NUR ---
recieved pt from [facility], pt reoriented to call light use, no distress at this time, safety maintained.
--- NOTE | 2018-08-08 17:35 | NUR ---
PAGED PAGED JAJA RAPHAEL AT [phone] SPOKE WITH TOSHIA.
--- NOTE | 2018-08-08 18:00 | NUR ---
spoke with dr pires about enid clearing pt for discharge home, stated he will discharge pt tomorrow. informed pt and family at bedside aware.
--- NOTE | 2018-08-08 19:14 | NUR ---
closing note all needs met through shift, safety maintained, care endorsed to books salesperson.
--- NOTE | 2018-08-08 19:15 | NUR ---
OPENING NOTE RECEIVED CARE OF PT. PT SITTING UP IN BED, AAOX4, WITH FAMILY AT BEDSIDE. PT DENIES PAIN AT THIS TIME. IVF ARE INFUSING AT ORDERED RATE, NO SIGN OF INFILTRATION AT IV SITE. BREATHING IS UNLABORED TO ROOM AIR. PT ENCOURAGED TO CALL FOR ASSISTANCE. SAFETY MAINTAINED. WILL MONITOR.
--- NOTE | 2018-08-08 20:55 | NUR ---
PAIN/PERCOCET ADMINISTERED PT REPORTING PAIN, PERCOCET 5-325 MG 1 TAB ADMINISTERED. PT EDUCATED REGARDING MEDICATION AND POTENTIAL SIDE EFFECTS. PT VERBALIZED UNDERSTANDING. PT ENCOURAGED TO CALL FOR ASSISTANCE. SAFETY MAINTAINED. WILL MONITOR.
--- NOTE | 2018-08-08 22:00 | NUR ---
SHOWER PT ASSISTED TO USE SHOWER WITH PETER SALOMON. COMPLETE LINEN CHANGE PROVIDED. PT TOLERATED ACTIVITY WELL, GAIT WAS NOTED TO BE STEADY. PT NOW RESTING COMFORTABLY IN BED WITH FAMILY AT BEDSIDE. IVF INFUSING ORDERED. PT ENCOURAGED TO CALL FOR FURTHER ASSISTANCE. SAFETY MAINTAINED. WILL MONITOR.
--- NOTE | 2018-08-09 00:15 | NUR ---
ROUNDS: PT IS AAOX4, SITTING UP IN BED WITH FAMILY AT BEDSIDE. BREATHING IS UNLABORED TO ROOM AIR, NO S/S OF ACUTE DISTRESS. IVF INFUSING AT ORDERED RATE, NO INFILTRATION AT IV SITE. PT ENCOURAGED TO CALL FOR ASSISTANCE. SAFETY MAINTAINED. WILL MONITOR.
[2018-08-09 01:09] VITALS: BP_SYST 140
[2018-08-09] MEDS: OXYCODONE/ACETAMINOPHEN 5-325 TABLET PO PRN (01:30)
--- NOTE | 2018-08-09 01:30 | NUR ---
PAIN/PERCOCET ADMINISTERED PT REPORTING SEVERE PAIN, PERCOCET 5-325 MG 1 TAB ADMINISTERED. PT EDUCATED REGARDING MEDICATION AND POTENTIAL SIDE EFFECTS. PT VERBALIZED UNDERSTANDING. PT IS SITTING UP IN BED WITH FAMILY AT BEDSIDE. NO S/S OF DISTRESS. PT ENCOURAGED TO CALL FOR ASSISTANCE. SAFETY MAINTAINED. WILL MONITOR.
[2018-08-09] MEDS: NACL 0.9% 1,000 ML IV SCH (01:31)
--- NOTE | 2018-08-09 03:20 | NUR ---
RN ROUNDS: PT RESTING IN BED WITH FAMILY AT BEDSIDE, VISIBLE SYMMETRICAL RISE AND FALL OF CHEST TO ROOM AIR, NO S/S OF ACUTE DISTRESS, IVF INFUSING AT ORDERED RATE. SAFETY MAINTAINED. WILL MONITOR.
--- NOTE | 2018-08-09 05:25 | NUR ---
SLEEPING PT SLEEPING IN BED, WITH FAMILY AT BEDSIDE. VISIBLE SYMMETRICAL RISE AND FALL OF CHEST TO ROOM AIR. IVF INFUSING AT ORDERED RATE. SAFETY MAINTAINED. WILL MONITOR.
--- NOTE | 2018-08-09 06:32 | NUR ---
CLOSING NOTE PT AAOX4, SITTING UP IN BED, WITH MOTHER AT BEDSIDE. PT DENIES PAIN AT THIS TIME. BREATHING IS UNLABORED TO ROOM AIR, NO S/S OF DISTRESS. IVF INFUSING AT ORDERED RATE WITH NO SIGN OF INFILTRATION AT IV SITE. ALL NEEDS MET DURING SHIFT. SAFETY MAINTAINED. WILL ENDORSE CARE TO DAY SHIFT RN.
--- NOTE | 2018-08-09 06:53 | NUR ---
Nutrition Update Kayden Scale 18 noted. Pt admitted for cholecystitis Diet: soft low fiber/bland diet BMI: 42.3 kg/m2 RD to follow per nutrition care standards.
[2018-08-09 07:05] LABS: ALBUMIN 2.7 g/dL (3.4-4.8); CALCIUM 9.5 mg/dL (8.4-11.0); CREATININE 0.84 mg/dL (0.55-1.30); POTASSIUM 3.7 mmol/L (3.5-5.1); TOTAL BILIRUBIN 1.4 mg/dL (0.0-1.0)
[2018-08-09 07:43] LABS: WHITE BLOOD COUNT (AUTO) 11.2 K/uL (4.8-10.8)
[2018-08-09 07:44] LABS: HEMATOCRIT 38.8 % (36-48); HEMOGLOBIN 12.7 g/dL (12.0-16.0); MEAN CORPUSCULAR HEMOGLOBIN 28 pg (27-31); MEAN CORPUSCULAR HGB CONC 33 % (32-36); MEAN CORPUSCULAR VOLUME 86 fL (79.0-98.0); RED BLOOD CELL COUNT(AUTO) 4.51 MIL/uL (4.2-6.2); RED CELL DISTRIBUTION WIDTH 14.5 % (9.0-15.0)
[2018-08-09 07:45] LABS: BASOPHILS % (AUTO) 0.4 % (0.0-2.0); EOSINOPHILS # (AUTO) 0.4 K/uL (0.0-0.4); EOSINOPHILS % (AUTO) 3.9 % (0.0-4.0); LYMPHOCYTES # (AUTO) 3.2 K/uL (1.0-5.5); LYMPHOCYTES % (AUTO) 28.8 % (20.5-51.5); MONOCYTES # (AUTO) 0.7 K/uL (0.0-1.0); MONOCYTES % (AUTO) 6.5 % (1.7-9.3); NEUTROPHILS # (AUTO) 6.8 K/uL (1.8-7.7); NEUTROPHILS % (AUTO) 60.4 % (40.0-70.0); PLATELET COUNT (AUTO) 519 K/uL (130-430)
--- NOTE | 2018-08-09 07:45 | NUR ---
INITIAL NOTE RECEIVED PT IN BED, NO S/S OF DISTRESS OR SOB NOTED, PT HAS NO C/O PAIN AT THIS TIME, PT IN STABLE CONDITION, PT AAOX4, VERBAL. PT HAS THREE ABD INCISIONS WITH STERI STRIPS CLEAN AND DRY. PT HAS BILATERAL SCD'S IN PLACE. EDUCATED PT ON USE OF INCENTIVE SPIROMETER, PT TO USE 10 TIMES AN HOUR WHILE AWAKE, PT VERBALIZED UNDERSTANDING, PT AT 1800ML. BED AT LOWEST POSITION, CALL LIGHT WITHIN REACH, WILL CONTINUE TO MONITOR PT FOR ANY CHANGES, FALL PRECAUTIONS IN PLACE.
[2018-08-09 08:10] LABS: HEPATITIS B CORE AB, IgM Negative (Negative); HEPATITIS B SURFACE AG Negative (Negative)
[2018-08-09 08:15] VITALS: BP_SYST 120
[2018-08-09] MEDS: LEVOFLOXACIN 500 MG/D5W 100 ML IV SCH (08:34)
[2018-08-09] MEDS ORDERED: LEVO750T45 PO (08:43)
[2018-08-09] MEDS ORDERED: HYDR-4272 PO (08:43)
[2018-08-09 08:45] LABS: ERYTHROCYTE SEDIMENTATION RATE 68 MM/HR (0-20)
--- NOTE | 2018-08-09 10:20 | NUR ---
ROUNDS PT IN BED, NO S/S OF DISTRESS OR SOB NOTED, PT HAS NO C/O PAIN AT THIS TIME, PT IN STABLE CONDITION, PT WATCHING TV, WILL CONTINUE TO MONITOR PT FOR ANY CHANGES.
[2018-08-09 11:17] VITALS: BP_SYST 118
--- NOTE | 2018-08-09 11:45 | NUR ---
D/C Patient Patient given medication reconciliation form and D/C instructions. Exit Care provided. Patient verbalized understanding. MD discussed with patient the results and treatment provided. Ambulatory with steady gait for discharge to home. Patient in stable condition, ID band removed. IV catheter removed, intact and dressing applied, no active bleeding. Rx of norco, percocet and levaquin given. Patient educated on pain management. All belongings sent with patient.
[2018-08-09 12:40] LABS: HEPATITIS A AB, IgM Negative (Negative)
[2018-08-09 18:13] LABS: ANTI NUCLEAR AB WITH REFLEX Negative (Negative)
== END 2018-08-09 11:45 | disposition home or self-care (01) | DRG 710 ==
LOC: SED 10:31 → SMU 15:06
PROVIDERS: ADMIT Preventive Medicine Preventive Medicine/Occupational Environmental Medicine; ATTEND Preventive Medicine Preventive Medicine/Occupational Environmental Medicine
PROC: 0FT44ZZ Resection of Gallbladder, Percutaneous Endoscopic Approach (ICD-10-PCS; principal; 2018-08-01 18:00)
PROC: 0F798ZZ Dilation of Common Bile Duct, Via Natural or Artificial Opening Endoscopic (ICD-10-PCS; 2018-08-07)
PROC: BF101ZZ Fluoroscopy of Bile Ducts using Low Osmolar Contrast (ICD-10-PCS; 2018-08-07)
DX: A41.89 Other specified sepsis (principal); E43 Unspecified severe protein-calorie malnutrition; K80.62 Calculus of gallbladder and bile duct with acute cholecystitis without obstruction; E83.52 Hypercalcemia; E87.1 Hypo-osmolality and hyponatremia; F11.10 Opioid abuse, uncomplicated; F13.10 Sedative, hypnotic or anxiolytic abuse, uncomplicated; D64.9 Anemia, unspecified; E16.2 Hypoglycemia, unspecified; E66.9 Obesity, unspecified; E87.6 Hypokalemia; F12.10 Cannabis abuse, uncomplicated; F17.200 Nicotine dependence, unspecified, uncomplicated; F17.210 Nicotine dependence, cigarettes, uncomplicated; D47.3 Essential (hemorrhagic) thrombocythemia; E80.6 Other disorders of bilirubin metabolism; R73.9 Hyperglycemia, unspecified
CPT/HCPCS: 36415; 71045; 74181; 76000; 76700-TC; 78226; 80053; 80074; 80076; 80202-TC; 80307; 81000-TC; 81025; 83516; 83690-TC; 84295-TC; 84703; 85007; 85025; 85027; 85610-TC; 85651-TC; 86038; 86140; 86708; 86709; 87040-TC; 87081; 88304; 94010; 96361; 96365; 96367; 96375; 99285; A9537; C1727; C1769; J0690; J1170; J1956; J2060; J2250; J2270; J2405; J2543; J2704; J3010; J3370; J3480; J3490; J7030; J7040; J7120; Q9967

== ENCOUNTER 2019-12-27 01:01 | Emergency (ER) | payer MEDICAID ==
[~2019-12-27] VITALS: Ht 162.6 cm; Wt 104.3 kg
[~2019-12-27 01:01] MED LIST: HYDR-4272 PO; LEVO750T45 PO; OXYC-128 PO
[2019-12-27 01:05] VITALS: BP_SYST 163
[2019-12-27] MEDS ORDERED: KETOROLAC TROMETHAMINE 60 MG/2 ML VIAL IM ONE (02:15)
[2019-12-27 02:55] VITALS: BP_SYST 154
== END 2019-12-27 02:55 | disposition home or self-care (01) ==
LOC: SED 01:01
DX: G44.209 Tension-type headache, unspecified, not intractable (principal); Z79.899 Other long term (current) drug therapy
CPT/HCPCS: 96372; 99283; J1885

== ENCOUNTER 2020-02-12 22:54 | Emergency (ER) | payer MEDICAID ==
[~2020-02-12] VITALS: Ht 162.6 cm; Wt 104.3 kg
[2020-02-12 23:00] VITALS: BP_SYST 138
[2020-02-13] MEDS ORDERED: AMOXICILLIN 500 MG CAPSULE PO ONE (00:45)
[2020-02-13 01:00] VITALS: BP_SYST 138
== END 2020-02-13 01:00 | disposition home or self-care (01) ==
LOC: SED 22:54
DX: K04.7 Periapical abscess without sinus (principal); K08.89 Other specified disorders of teeth and supporting structures; Z79.899 Other long term (current) drug therapy
CPT/HCPCS: 99283